=== PATIENT | male | born 2000 ===

== ENCOUNTER 2023-11-26 14:58 | Inpatient (IN) | payer OTHER ==
[2023-11-26] MEDS ORDERED: ACETAMINOPHEN TAB 325 MG TAB PO PRN (17:50)
[2023-11-26] MEDS ORDERED: LORazepam 2 MG/ML INJ IM PRN (17:50)
[2023-11-26] MEDS ORDERED: HALOPERIDOL LACTATE 5 MG/ML 1 ML VIAL IM PRN (17:50)
[2023-11-26] MEDS ORDERED: MAG HYDROX/AL HYDROX/SIMETH 355 ML BOTTLE PO PRN (17:50)
[2023-11-26] MEDS ORDERED: MAGNESIUM HYDROXIDE 2,400 MG/30 ML CUP PO PRN (17:50)
[2023-11-26] MEDS: OLANZapine 10 MG TAB PO SCH (21:21)
[2023-11-27] MEDS: LORazepam 1 MG TAB PO PRN (00:04)
[2023-11-27] MEDS: SERTRALINE 100 MG TAB PO SCH (08:12)
[2023-11-27] MEDS: NICOTINE 14MG/24HR PATCH TRANSDERM SCH (08:13)
[2023-11-27] MEDS: PALIPERIDONE 3 MG TAB.ER.24 PO SCH (11:20)
--- NOTE | 2023-11-27 11:31 | P.HP ---
Psychiatric H&P - . 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 Single. HPI: Patient presented to the hospital as a transfer from another facility. He was petitioned in [facility], as per petition, patient has new onset of bizarre behavior, and remains actively psychotic, as evidenced by nonsensical speech and acute confusion. Upon todays assessment, patient is not very cooperative. States "You just want to kill me, to get the money out of my head." When asked why he is here, he states "god brought me here, I don't know why I'm here". Patient is making bizarre statements during the interview, about it all being about the money, and "I'm Al" . patient had very poor insight, poor judgment, very argumentative, was seen to be responding to internal stimuli. Patient denies any suicidal or homicidal ideations intent or plan. At this time patient denies any auditory or visual hallucinations. Patient denies any flight of ideas racing thoughts and increased in goal directed behavior. Patient denies using drugs to me, however, admitted to the an RN that he uses marijuana and whippits. he was demanding discharge PAST PSYCHIATRIC HISTORY: Patient states that he has never been admitted psychiatrically. He does take Zoloft, and has never attempted suicide. he sttaes that he has a psychiatrist in [place] however does not know his name. PMH:As per ER note ALLERGIES: as per EMR CHEMICAL DEPENDENCY HISTORY: as per HPI FAMILY PSYCHIATRIC/SUBSTANCE USE HISTORY: Denies SOCIAL HISTORY: Patient was born and raised in [place], [place], lives at home in a house with his parents, High school graduate, no children, has been to care home for drugs in the past. 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 Patient appears to have fair hygiene and grooming. Multiple tattoos. Behavior: Patient is seated with any agitated behavior. Acting childish, making noises, and rolling eyes. Speech: Patient's speech is fluent and nonpressured. Mood/Affect: Patient reports their mood is annoyed, affect is congruent and constricted. Suicidality/Homicidality: Patient denies having any homicidal ideation intent or plan. Denies any suicidal ideations intent or plan Perceptions: Patient denies any visual hallucinations and denies any auditory hallucinations Though content/process: There is evidence of any delusional thought content and thought process is bizarre. Memory and concentration: AOX3, grossly intact for the purposes of this session. Cannot spell "WORLD" backwards Judgment and insight: poor STRENGTHS/WEAKNESSES: strength is that patient is resilient. Weakness is that patient has poor judgment and is impulsive INTELLECT: Average IMPRESSIONS: psychosis, unspecified inhalant abuse history of depression Nicotine dependance Cannabis use disorder PLAN: -Patient is admitted under involuntary status to MHU for stabilization of psychiatric symptoms and safety. Patient has not signed adult voluntary form or medication consent and is placed in patient's chart. A second certification was completed and along with petition will be filed for court. -Medications : Will start patient on Invega 3mg bid for psychosis, Zoloft 100mg daily for mood/anxiety -Ativan and Haldol PRN for agitation/aggression, -Patient was counselled on substance abuse and desired to cut back on use -Patient was informed of the risks, benefits and side effects of the medication , he did not sign med consent form. -Internal Medicine consult to perform medical evaluation and physical. -NRT -nicotine patch -SW on board for discharge planning. Encourage patient to participate in groups to work on coping skills. Will await deferral and court date. 11/27/23 11:05 11/27/23 11:29
[2023-11-27] MEDS: haloperidoL 5 MG TAB PO PRN (11:40)
[2023-11-27] MEDS: traZODone HCL 100 MG TAB PO PRN (20:12)
[2023-11-28] MEDS: chlorproMAZINE 25 MG TAB PO ONE (11:19)
--- NOTE | 2023-11-28 11:29 | P.PN ---
Progress Note - Text Progress Note Date: 11/28/23 Interval History: Patient was seen in the [facility] and was semi agreeable to speak with hand sign writer in the office. Patient states that he is just fine, and wants to get out of here. He claims the medication is making him less angry and more relaxed. Patient is requiring several PRN's and not trying to use coping skills. Acting out of the unit, making weird sounds and instigating other patients. He stated he thought he was only going to the hospital to get his organs checked, and now he is here, and he don't know why. Research Clerk explained the psychotic behaviors the patient has been demonstrating. Patient is going to some groups, and states he sleeps well. Patient claims his appetite is good . At the end of the interview, as this hand sign writer was trying to explain the court process to the patient, the patient yelled "GO FUCK YOURSELF". he demonstrates very poor insight/judgment. At this time patient denies any suicidal or homicidal ideations, intent or plan. Patient denies any auditory, visual hallucinations and when asked about paranoia or delusions, the patient responded with "Do you think people are after me?" Research Clerk told the patient no. Patient denies any side effects from the medications and has been compliant with meds. MENTAL STATUS EXAM: General Appearance: Patient appears to be stated age is alert, hard to direct, and does not attempt to cooperate. Patient appears to have fair hygiene and grooming. Multiple tattoos. Behavior: Patient is seated with some agitated behavior. Acting childish, making noises, and rolling eyes. intrusive, argumentative. Speech: Patient's speech is fluent and nonpressured. Mood/Affect: Patient reports their mood is angry, affect is congruent and c onstricted. Suicidality/Homicidality: Patient denies having any homicidal ideation intent or plan. Denies any suicidal ideations intent or plan Perceptions: Patient denies any visual hallucinations and denies any auditory hallucinations Though content/process: There is evidence of any delusional thought content and thought process is bizarre. Patient thinks he is Al. minimizing and focused o n discharge Memory and concentration: AOX3, grossly intact for the purposes of this session. Judgment and insight: poor IMPRESSIONS: psychosis, unspecified inhalant abuse history of depression Nicotine dependance Cannabis use disorder PLAN: -Patient is admitted under involuntary status to MHU for stabilization of psychiatric symptoms and safety. Patient has not signed adult voluntary form or medication consent and is placed in patient's chart. A second certification was completed and along with petition will be filed for court. -Medications :increase Invega 3mg qd and Invega 6mg qhs for psychosis, Zoloft 100mg daily for mood/anxiety. -Ativan and Haldol PRN for agitation/aggression, -NRT -nicotine patch -SW on board for discharge planning. Encourage patient to participate in groups to work on coping skills. Will await deferral and court date.
--- NOTE | 2023-11-28 15:42 | P.CONS ---
History of Present Illness - Reason for Consult Consult date: 11/28/23 - History of Present Illness 23 year old M with PMH of EtOH abuse and nitrous oxide abuse is admitted to inpatient mental health for psychiatric concerns. He reports hearing songs while abusing nitrous oxide. He reports no complaints today. General: non toxic, no distress, appears at stated age Derm: warm, dry Head: atraumatic, normocephalic, symmetric Eyes: EOMI, no lid lag, anicteric sclera Mouth: no lip lesion, mucus membranes moist Cardiovascular: S1S2 reg, no murmur Lungs: CTA bilateral, no rhonchi, no rales , no accessory muscle use Ext: no gross muscle atrophy, no edema, no contractures Neuro: CN II to XII grossly intact, no focal neuro deficits Psych: Alert, oriented, appropriate affect Based on my assessment of this patient, this patient meets a high complexity level of care. Patient has an chronic diagnosis of EtOH and nitrous oxide inhalant abuse which poses a threat to life or bodily function. History of EtOH binge drinking: Patient encouraged to quit. No signs of withdrawal. History of inhalant abuse: Patient advised to quit. I have reviewed the following lactation consultant notes: Psyc note. I have reviewed the results of the following tests: I have ordered the following tests: I have discussed the care of this patient with the following independent historian: I have independently interpreted the following test below: I have discussed the management of this patient with the following physician: Past Medical History Past Medical History: No Reported History History of Any Multi-Drug Resistant Organisms: None Reported Past Surgical History: No Surgical Hx Reported Past Anesthesia/Blood Transfusion Reactions: No Reported Reaction Smoking Status: Never smoker - Past Family History Father Family Medical History: No Reported History Mother Family Medical History: No Reported History Medications and Allergies Allergies Allergy/AdvReac Type Severity Reaction Status Date / Time No Known Allergies Allergy Verified 11/26/23 17:35 Physical Exam Vitals: Vital Signs Temp Pulse Resp BP 11/28/23 07:04 97.3 F L 132 H 18 122/81
[2023-11-28] MEDS: PALIPERIDONE 6 MG TAB.ER.24 PO SCH (20:14)
[2023-11-28] MEDS ORDERED: PALIPERIDONE 6 MG TAB.ER.24 PO SCH (21:00)
[2023-11-29] MEDS: PALIPERIDONE 3 MG TAB.ER.24 PO SCH ×2 (08:31→20:31)
[2023-11-29] MEDS: DIVALPROEX ER 500 MG TAB.ER.24H PO STA (10:03)
--- NOTE | 2023-11-29 11:49 | P.PN ---
Progress Note - Text Progress Note Date: 11/29/23 Interval History: Patient was seen in the hallway and was agreeable to speak with check writer in the [place]. Patient states that every thing is going ok. Patient displays very inappropriate impulsively, making noises, disturbing and antagonizing other patients and staff. Patient continues to be intrusive with staff and co patients and is at times provacative, showing very poor insight/judgment. He did not defer with his research attorney yesterday, and his full hearing is set for 12/03. focused on dischaarge and minimizing. At this time patient denies any suicidal or homicidal ideations, intent or plan. Patient denies any auditory, visual hallucinations and denies paranoia or delusions. When patient asked if he could go home, check writer explained the court process to the patient, patient stormed away, and said "I guess we're done here then", and stormed away. MENTAL STATUS EXAM: General Appearance: Patient appears to be stated age is alert, hard to direct, and does not attempt to cooperate. Patient appears to have fair hygiene and grooming. Multiple tattoos. Behavior: Patient is seated with some agitated behavior. Acting childish, making noises, and rolling eyes. intrusive, argumentative. Speech: Patient's speech is fluent and nonpressured. Mood/Affect: Patient reports their mood is ok, affect is congruent and constricted. Suicidality/Homicidality: Patient denies having any homicidal ideation intent or plan. Denies any suicidal ideations intent or plan Perceptions: Patient denies any visual hallucinations and denies any auditory hallucinations Though content/process: There is no evidence of any delusional thought content and thought process disorganized Memory and concentration: AOX3, grossly intact for the purposes of this session. Judgment and insight: poor/impulsive. IMPRESSIONS: psychosis, unspecified inhalant abuse history of depression Nicotine dependance Cannabis use disorder PLAN: -Patient is admitted under involuntary status to MHU for stabilization of psychiatric symptoms and safety. Patient did not defer, full hearing 12/03 -Medications: Invega 3mg qd increase to 9mg qhs for psychosis, Zoloft 100mg daily for mood/anxiety. add depakote 1000mg PO daily for agitation/mood stabilization -Ativan and Haldol PRN for agitation/aggression -ordered EKG -NRT -nicotine patch -SW on board for discharge planning. Encourage patient to participate in groups to work on coping skills. Patient did not defer, full hearing 12/03
[2023-11-30] MEDS: DIVALPROEX ER 500 MG TAB.ER.24H PO SCH (07:56)
[2023-11-30] MEDS: LORATADINE 10 MG TAB PO SCH (10:01)
[2023-11-30] MEDS: FLUTICASONE 50MCG/SPRAY NASAL 16GM EA NOSTRIL SCH (10:02)
--- NOTE | 2023-11-30 11:35 | P.PN ---
Progress Note - Text Progress Note Date: 11/30/23 Interval History: [facility] and was agreeable to speak with development writer in the all. Patient states that he is "great". Patient displays very inappropriate impulsively, making noises, disturbing and antagonizing other patients and staff. Patient continues to be intrusive with staff and co patients and is at times provocative, showing very poor insight/judgment. He states that he is upset that he is still here, and he does not belong here. When asked why he yells in the hallways, he states that it is the only way he can release his anger. He stated that he is paranoid about the people with the "lizard eyes" that are trying to kill him. He also stated that if anyone tries to kill him, he will kill them in self defense. Patient focused on discharge, stating he does not belong here. Continues to display very poor insight and judgment, poor impulse control. Granulating Machine Operator reiterated to patient that he cannot be safely discharged at this time. At this time patient denies any suicidal ideations, endorses homicidal ideations, no intent or plan. Patient denies any auditory, visual hallucinations and endorses paranoia but no delusions. MENTAL STATUS EXAM: General Appearance: Patient appears to be stated age is alert, hard to direct, and does not attempt to cooperate. Patient appears to have fair hygiene and grooming. Multiple tattoos. Behavior: Patient is seated with some agitated behavior. Acting childish, making noises, and rolling eyes. intrusive, argumentative. Speech: Patient's speech is fluent and nonpressured. Mood/Affect: Patient reports their mood is irritated, affect is congruent and constricted. Suicidality/Homicidality: Patient denies having any homicidal ideation intent or plan. Denies any suicidal ideations intent or plan Perceptions: Patient denies any visual hallucinations and denies any auditory hallucinations Though content/process: There is no evidence of any delusional thought content and thought process disorganized Memory and concentration: AOX3, grossly intact for the purposes of this session. Judgment and insight: poor/impulsive. IMPRESSIONS: psychosis, unspecified inhalant abuse history of depression Nicotine dependance Cannabis use disorder PLAN: -Patient is admitted under involuntary status to MHU for stabilization of p sychiatric symptoms and safety. Patient did defer on 11/28. Plan to transition onto a RASMUSSEN -Medications: d/c Invega PO due to ineffectiveness, add prolixin 5mg bid for psychosis with plan to titrate up as tolerated, add cogentin 1mg bid for EPS symptoms, Zoloft 100mg daily for mood/anxiety. depakote 1000mg PO daily for agitation/mood stabilization -Ativan and Haldol PRN for agitation/aggression -development writer reviewed EKG -NRT -nicotine patch -SW on board for discharge planning. Encourage patient to participate in groups to work on coping skills. Patient ended up deferring on 11/28.
[2023-11-30] MEDS: BENZTROPINE MESYLATE 1 MG TAB PO SCH (14:26)
[2023-12-01] MEDS ORDERED: WATER FOR INJECTION, STERILE 10 ML IV ONE (08:27)
--- NOTE | 2023-12-01 13:11 | P.PN ---
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 Mood/Affect: Patient reports their mood is fair affect is congruent and constricted. Suicidality/Homicidality: Patient denies having any homicidal ideation intent or plan. Denies any suicidal ideations intent or plan Perceptions: Patient denies any visual hallucinations and denies any auditory hallucinations Though content/process: There is no evidence of any delusional thought content and thought process disorganized Memory and concentration: AOX3, grossly intact for the purposes of this session. Judgment and insight: poor/impulsive. IMPRESSIONS: psychosis, unspecified inhalant abuse history of depression Nicotine dependance Cannabis use disorder PLAN: as compared to the previous notes the patient appears to be improving with decrease in the psychotic behaviors which may be driven by his substance use Agree with Dr. restrepo recommended treatment plan -'Patient is admitted under involuntary status to MHU for stabilization of psychiatric symptoms and safety. -Medications: d/c Invega PO due to ineffectiveness, add prolixin 5mg bid for psychosis with plan to titrate up as tolerated, add cogentin 1mg bid for EPS symptoms, Zoloft 100mg daily for mood/anxiety. depakote 1000mg PO daily for agitation/mood stabilization -Ativan and Haldol PRN for agitation/aggression -signwriter reviewed EKG -NRT -nicotine patch -SW on board for discharge planning. Encourage patient to participate in groups to work on coping skills. Patient ended up deferring on 11/28. Roni Win M.D. Objective - Vital Signs Vital signs: Vital Signs Temp 98.0 F 11/30/23 20:08 Pulse 113 H 11/30/23 20:08 Resp 16 11/30/23 20:08 BP 115/64 11/30/23 20:08 Pulse Ox 98 11/30/23 20:08 FiO2
--- NOTE | 2023-12-02 11:56 | P.PN ---
Subjective Progress Note Date: 12/02/23 Patient Name: Romario Suarez Date of : 4 Patient Status: Inpatient Attending Provider: Xavier Restrepo Date: 12/02/23 Initialization Date: 11/30/23 08:46 Interval History: the patient was seen chart was reviewed and case discussed with the nursing staff Patient remains attention seeking and continues to follow this physician on the unit Patient also acts childlike at times and remains attention seeking When we discussed his issues with using poppers patient continues to rationalize and states that it will make his heart grow insight remains poor Denies any suicidal or homicidal ideations Focused on wanting to go home MENTAL STATUS EXAM: General Appearance: disheveled appearance Behavior: cooperative and relaxed Speech: Patient's speech is fluent and nonpressured. Mood/Affect: Patient reports their mood is fair affect is congruent and constricted. Suicidality/Homicidality: Patient denies having any homicidal ideation intent or plan. Denies any suicidal ideations intent or plan Perceptions: Patient denies any visual hallucinations and denies any auditory hallucinations Though content/process: There is no evidence of any delusional thought content and thought process disorganizedPatient however does exhibit poor understanding of the effects of the psychotropic street drugs Memory and concentration: AOX3, grossly intact for the purposes of this session. Judgment and insight: poor/impulsive. IMPRESSIONS: psychosis, unspecified inhalant abuse history of depression Nicotine dependance Cannabis use disorder PLAN: as compared to the previous notes the patient appears to be improving with decrease in the psychotic behaviors which may be driven by his substance use Agree with Dr. restrepo recommended treatment plan -'Patient is admitted under involuntary status to MHU for stabilization of psychiatric symptoms and safety. -Medications: d/c Invega PO due to ineffectiveness, add prolixin 5mg bid for psychosis with plan to titrate up as tolerated, add cogentin 1mg bid for EPS symptoms, Zoloft 100mg daily for mood/anxiety. depakote 1000mg PO daily for agitation/mood stabilization -Ativan and Haldol PRN for agitation/aggression -investigative writer reviewed EKG -NRT -nicotine patch -SW on board for discharge planning. Encourage patient to participate in groups to work on coping skills. Patient ended up deferring on 11/28. Roni Win M.D. Objective - Vital Signs Vital signs: Vital Signs Temp 98.6 F 12/02/23 06:00 Pulse 122 H 12/02/23 06:00 Resp 17 12/02/23 06:00 BP 119/69 12/02/23 06:00 Pulse Ox 99 12/02/23 06:00 FiO2 Intake & Output 12/01/23 12/02/23 12/02/23 18:59 06:59 18:59 Weight 71.6 kg
[2023-12-02] MEDS ORDERED: WATER FOR INJECTION, STERILE 10 ML IV ONE (16:45)
[2023-12-02] MEDS: OLANZapine 10 MG VIAL IM PRN (16:46)
[2023-12-03] MEDS: IBUPROFEN 600 MG TAB PO PRN (09:37)
[2023-12-03] MEDS ORDERED: ZIPRASIDONE 20 MG VIAL IM PRN (10:11)
[2023-12-03] MEDS: OLANZapine ODT 10 MG TAB PO PRN (10:17)
--- NOTE | 2023-12-03 10:18 | P.PN ---
Progress Note - Text Progress Note Date: 12/03/23 Interval History: Patient was seen in the [facility] and was agreeable to speak with typewriter operator automatic in the h all. Patient states that his weekend was "a little weird". He would not elaborate further. Patient is still asking for and receiving PRN's for aggitative behavior. Patient focused on discharge, stating he does not belong here. He states he does not feel safe here, and he just wants to be home with his family. Continues to display very poor insight and judgment, poor impulse control, when typewriter operator automatic told patient he could not be discharged today, patient called typewriter operator automatic an asshole. patient was asked about the previous statements he made about paranoia and people having "lizard eyes" he looked closely at writers eyes and states that he does not see it in him today. At this time patient denies any suicidal ideations, endorses homicidal ideations, no intent or plan. Patient denies any auditory, visual hallucinations and denies paranoia and delusions. MENTAL STATUS EXAM: General Appearance: Patient appears to be stated age is alert, hard to direct, and does not attempt to cooperate. Patient appears to have fair hygiene and grooming. Multiple tattoos. Behavior: Patient is seated with some agitated behavior. Acting childish, making noises, and rolling eyes. intrusive, argumentative.mildly improving Speech: Patient's speech is fluent and nonpressured. Mood/Affect: Patient reports their mood is ok, affect is congruent and constricted. mildly improving Suicidality/Homicidality: Patient denies having any homicidal ideation intent or plan. Denies any suicidal ideations intent or plan Perceptions: Patient denies any visual hallucinations and denies any auditory hallucinations Though content/process: There is no evidence of any delusional thought content and thought process disorganized Memory and concentration: AOX3, grossly intact for the purposes of this session. Judgment and insight: poor/impulsive. mildly improving IMPRESSIONS: psychosis, unspecified inhalant abuse history of depression Nicotine dependance Cannabis use disorder PLAN: -Patient is admitted under involuntary status to MHU for stabilization of psychiatric symptoms and safety. Patient did defer on 11/28. Plan to transition onto a RASMUSSEN -Medications: increase prolixin 5mg tid for psychosis with plan to titrate up as tolerated, cogentin 1mg bid for EPS symptoms, Zoloft 100mg daily for mood/anxiety. increase depakote 1500mg PO daily for agitation/mood stabilization -Ativan and Haldol PRN for agitation/aggression -typewriter operator automatic reviewed EKG -NRT -nicotine patch -SW on board for discharge planning. Encourage patient to participate in groups to work on coping skills. Patient deferred on 11/28. Will consider discharging patient once he is transition onto long-acting injection and improving psychiatrically.
[2023-12-03] MEDS: DIVALPROEX ER 500 MG TAB.ER.24H PO STA (10:27)
[2023-12-04] MEDS: DIVALPROEX ER 500 MG TAB.ER.24H PO SCH (07:55)
[2023-12-04] MEDS: BENZTROPINE MESYLATE 1 MG TAB PO SCH (07:56)
--- NOTE | 2023-12-04 09:21 | P.PN ---
Progress Note - Text Progress Note Date: 12/04/23 Interval History: Patient was seen wandering the hallways this morning. Patient was agreeable to speak to song writer today. He took Zyprexa and also Ativan as needed last night. Apparently slept through the night afterwards. Patient has been taking his medications, states that he feels "better" and continues to focus on discharge. He continues to have fairly superficial insight. He has been going to some groups, he appears to be mildly more pleasant today with song writer. Mildly improving impulse control today. He was mildly less religiously preoccupied today. At this time patient denies any suicidal ideations, endorses homicidal ideations, no intent or plan. Patient denies any auditory, visual hallucinations and denies paranoia and delusions. MENTAL STATUS EXAM: General Appearance: Patient appears to be stated age is alert, hard to direct, and does not attempt to cooperate. Patient appears to have fair hygiene and grooming. Multiple tattoos. Behavior: Patient is seated with some agitated behavior. Acting childish, making noises, and rolling eyes. intrusive, argumentative. mildly improving Speech: Patient's speech is fluent and nonpressured. Mood/Affect: Patient reports their mood is ok, affect is congruent and constricted. mildly improving Suicidality/Homicidality: Patient denies having any homicidal ideation intent or plan. Denies any suicidal ideations intent or plan Perceptions: Patient denies any visual hallucinations and denies any auditory hallucinations Though content/process: There is no evidence of any delusional thought content and thought process disorganized Memory and concentration: AOX3, grossly intact for the purposes of this session. Judgment and insight: poor/impulsive. mildly improving IMPRESSIONS: psychosis, unspecified inhalant abuse history of depression Nicotine dependance Cannabis use disorder PLAN: -Patient is admitted under involuntary status to [facility] for stabilization of psychiatric symptoms and safety. Patient did defer on 11/28. Plan to transition onto a RASMUSSEN -Medications: increase prolixin 8 mg bid for psychosis with plan to titrate up as tolerated, cogentin 2 mg bid for EPS symptoms, Zoloft 100mg daily for mood/anxiety. depakote 1500mg PO daily for agitation/mood stabilization -Check Depakene level tomorrow morning -Ativan and Haldol PRN for agitation/aggression -NRT -nicotine patch -SW on board for discharge planning. Encourage patient to participate in groups to work on coping skills. Patient deferred on 11/28. Will consider discharging patient once he is transition onto long-acting injection and improving psychiatrically. hopeful for discharge later on this week if patient is improving.
[2023-12-04] MEDS ORDERED: chlorproMAZINE 25 MG/ML 2 ML AMP IM PRN (11:39)
[2023-12-04] MEDS: chlorproMAZINE 25 MG TAB PO PRN (12:23)
[2023-12-04] MEDS: SERTRALINE 50 MG TAB PO ONE (17:18)
[2023-12-04] MEDS: fluPHENAZine DECANOATE 25 MG/ML 5ML MDV IM SCH (17:18)
[2023-12-04] MEDS: traZODone HCL 50 MG TAB PO SCH (20:53)
[2023-12-04] MEDS: QUEtiapine 50 MG TAB PO SCH (20:53)
[2023-12-04] MEDS ORDERED: traZODone HCL 50 MG TAB PO SCH (21:00)
[2023-12-05 07:18] VITALS: BP 132/77; PULSE 126; RESP 16; TEMP 97.7
[2023-12-05] MEDS: SERTRALINE 100 MG TAB PO SCH (08:02)
--- NOTE | 2023-12-05 10:18 | P.DS ---
Providers Date of admission: 11/26/23 20:26 Expected date of discharge: 12/05/23 Attending physician: Xavier Restrepo MD Consults: 11/26/23 17:50 Consult Physician Routine Consulting Provider: John Uribe Consult Reason/Comments: H&P and medical Do you want consulting provider notified?: Yes Primary care physician: Stated None - Discharge Diagnosis(es) (1) Unspecified psychosis Current Visit: Yes Status: Acute Priority: High (2) History of depression Current Visit: Yes Status: Acute Priority: Medium (3) Inhalant abuse Current Visit: Yes Status: Acute Priority: High (4) Nicotine dependence Current Visit: Yes Status: Acute Priority: Low (5) Cannabis use disorder Current Visit: Yes Status: Acute Priority: Medium Hospital Course: Admission HPI: Admission note was completed by magnetic tape typewriter operator "Patient presented to the hospital as a transfer from another facility. He was petitioned in [facility], as per petition, patient has new onset of bizarre behavior, and remains actively psychotic, as evidenced by nonsensical speech and acute confusion. Upon todays assessment, patient is not very cooperative. States "You just want to kill me, to get the money out of my head." When asked why he is here, he states "god brought me here, I don't know why I'm here". Patient is making bizarre statements during the interview, about it all being about the money, and "I'm Al" . patient had very poor insight, poor judgment, very argumentative, was seen to be responding to internal stimuli. Patient denies any suicidal or homicidal ideations intent or plan. At this time patient denies any auditory or visual hallucinations. Patient denies any flight of ideas racing thoughts and i ncreased in goal directed behavior. Patient denies using drugs to me, however, admitted to the an RN that he uses marijuana and whippits. he was demanding discharge" Hospital course: Upon admission to the unit patient was admitted involuntarily on a petition and certificate and a second certificate was completed and faxed with the courts. Patient ended up signing a deferral with the groover and striper operator and agreeing to treatment. Patient was initially hostile, aggressive and intrusive got along well with other patients and staff members and received several prn medications however with time and treatment he eventually got along better with everyone and followed unit protocol. Patient was compliant with the medications and denied any side effects throughout hospital course. Patient was started on Invega however failed this treatment due to lack of efficacy, patient was then transition onto Prolixin p.o. and was given up to 8 mg twice daily for psychosis/mood stabilization, patient was agreeable to receive Prolixin D 37.5 mg IM on 12/03, next dose will be due in every 2 weeks on 12/17, patient was also started on Cogentin increased to dose of 2 mg twice daily for EPS reaction, Zoloft 150 mg daily for mood/anxiety, Depakote increased to dose of 1500 mg daily for mood stabilization/agitation. Patient was also started on Seroquel and increased to dose of 100 mg nightly for mood stabilization/insomnia. Patient spoke of his stressors and engaged in therapy both group and individual. Patient was also seen by medical team for history and physical exam. Patient refused blood work while he was in the hospital. Throughout the course of the hospitalization patient gradually improved with regards to mood, anxiety, agitation, psychosis, delusions, sleep and returned back to their baseline level of functioning. On the day of discharge patient denied any suicidal or homicidal ideations intent or plan denied any auditory or visual hallucinations. Patient endorsed wanting to live for his health and his future. The patient denied any access to guns or weapons. Patient denied any paranoia and did not endorse any delusions. Patient does have a significant history of substance abuse and was counseled on abstaining from all substances including alcohol and marijuana. Patient was offered however declined inpatient substance-abuse rehab. Patient elected to do outpatient substance use treatment program through [facility]. Patient was also counseled on the medications and need for regular compliance and was encouraged to follow-up with their outpatient appointment for mental health and also for primary care. Prior to discharge a family meeting will be arranged by social service technician to answer any questions and ensure safety upon discharge. Patient will be picked up by his parents today and will be following up with [facility]. Mental status exam: General Appearance: Patient appears to be thin, several tattoos, stated age is alert, pleasant, and times to be cooperative. Patient is in no acute distress and has improved hygiene and grooming Behavior: Patient is calmly seated without any agitated behavior. More cooperative today. Speech: Patient's speech is fluent and nonpressured. Mood/Affect: Patient reports their mood is "good", affect is congruent Suicidality/Homicidality: Patient denies having any suicidal or homicidal ideation intent or plan. Perceptions: Patient denies any auditory or visual hallucinations. Though content/process: There is no evidence of any delusional thought content and thought process is linear and goal-directed. Memory and concentration: AOX3, grossly intact for the purposes of this session. Can spell "WORLD" backwards correctly. Judgment and insight: Chronically poor, however has improved with guarded prognosis Impression: psychosis, unspecified inhalant abuse history of depression Nicotine dependance Cannabis use disorder Plan: -Continue with discharge today as patient has improved and stabilized psychiatrically and is not currently an imminent threat to himself and/or others. Patient will remain at chronically elevated risk for harm to self and/or others due to his impulsivity and substance abuse.] -Continue medications: Continue with Prolixin p.o. 5 mg twice daily for 2 more days then discontinue. Prolixin D 37.5 mg IM, last dose was given on 12/03 next dose will be due in 2 weeks on 12/17 at [facility], Cogentin 2 mg twice daily for EPS reaction, Zoloft 150 mg daily for mood/anxiety, Depakote 1500 mg nightly for mood stabilization/agitation, Seroquel 100 mg nightly for mood stabilization/insomnia. -Patient was counseled on the need for medication compliance and appropriate follow-up at mental health and also primary care for medical issues. Patient verbalized understanding and agreed. -Social work to arrange for and conduct family meeting to ensure safety upon discharge and answer any questions/concerns. Social work also to arrange for patients follow up appointments with [facility] for psychiatric care along with follow up with primary care provider. -Patient counseled on abstaining from recreational drugs and marijuana and alcohol. Was informed/educated on the adverse effects on their physical and ment al health. Patient verbally agreed and understood. Patient was offered substance abuse treatment however declined at this time. -Patient was instructed to return to the hospital or seek immediate medical care if their psychiatric or medical symptoms do worsen or reoccur. Allergies Allergy/AdvReac Type Severity Reaction Status Date / Time No Known Allergies Allergy Verified 11/26/23 17:35 Vital Signs Temp 97.7 F 12/05/23 06:27 Pulse 126 H 12/05/23 06:27 Resp 16 12/05/23 06:27 BP 132/77 12/05/23 06:27 Pulse Ox 99 12/04/23 05:58 FiO2 Patient Condition at Discharge: Stable Plan - Discharge Summary Discharge Rx Participant: Yes New Discharge Prescriptions: New Loratadine [Claritin] 10 mg PO DAILY 30 Days #30 tab Benztropine Mesylate [Cogentin] 2 mg PO BID 30 Days #120 tab Fluticasone Nasal [place] [Flonase Nasal [place]] 2 spray EA NOSTRIL DAILY ml fluPHENAZine [Prolixin] 5 mg PO BID 2 Days #4 tab fluPHENAZine decanoate [Prolixin Decanoate] 37.5 mg IM Q14D #1 ml Sertraline [Zoloft] 150 mg PO DAILY 30 Days #45 tab Divalproex ER [Depakote ER] 1,500 mg PO DAILY 30 Days #90 tab Ibuprofen [Motrin] 600 mg PO Q6HR PRN tab PRN Reason: Moderate Pain (Scale 4 To 6) QUEtiapine [SEROquel] 100 mg PO DAILY 30 Days #30 tablet Follow up Appointment(s)/Referral(s): CAITLIN Atkinson [Other] - 12/11/23 10:00 am Activity/Diet/Wound Care/Special Instructions: Avoid the use of street drugs and alcohol. Take all medications as prescribed. When you are in need of refills on your medications, please contact your medical provider and/or outpatient psychiatrist/provider to have this done. Please go to your scheduled outpatient appointment for aftercare treatment. If symptoms return or become worse, call the crisis line at and/or go to the nearest emergency room for evaluation. National Suicide Hotline 986 Discharge Disposition: HOME SELF-CARE
== END 2023-12-05 12:18 | disposition home or self-care (01) | DRG 885 ==
LOC: 3MHU 20:26
PROVIDERS: ADMIT Psychiatry & Neurology Psychiatry; ATTEND Psychiatry & Neurology Psychiatry
DX: F29 Unspecified psychosis not due to a substance or known physiological condition (principal); F18.10 Inhalant abuse, uncomplicated; F32.A Depression, unspecified; F17.200 Nicotine dependence, unspecified, uncomplicated; F12.10 Cannabis abuse, uncomplicated; F41.9 Anxiety disorder, unspecified; R45.1 Restlessness and agitation; F22 Delusional disorders; G47.00 Insomnia, unspecified
CPT/HCPCS: 80164; 93005